=== PATIENT | male | born 1995 | race Caucasian/White ===

== ENCOUNTER 2020-02-18 10:11 | Emergency (ER) | payer BC, MEDICAID, MEDICARE, OTHER, SELFPAY ==
[~2020-02-18] VITALS: Ht 170.2 cm; Wt 75.6 kg
[2020-02-18 10:30] VITALS: BP 126/86
[2020-02-18] MEDS ORDERED: KETOROLAC 30 MG/1 ML ONE (11:19)
[2020-02-18] MEDS ORDERED: KETOROLAC 30 MG/1 ML IM ONE (11:30)
== END 2020-02-18 11:50 | disposition home or self-care (01) ==
LOC: ED 11:07
DX: M54.41 Lumbago with sciatica, right side (principal)
CPT/HCPCS: 96372; 99283; J1885